=== PATIENT | male | born 1980 | race Caucasian/White ===

== ENCOUNTER 2016-09-03 19:59 | Emergency (ER) | payer OTHER | END 2016-09-03 21:52 | disposition home or self-care (01) | LOC: ER 19:59 | DX: T62.91XA Toxic effect of unspecified noxious substance eaten as food, accidental (unintentional), initial encounter (principal); R11.2 Nausea with vomiting, unspecified; F17.200 Nicotine dependence, unspecified, uncomplicated | CPT/HCPCS: 36415; 96361; 96374; 96375; J1885; J2550 ==